=== PATIENT | female | born 1980 | race American Indian/Alaskan Native ===

== ENCOUNTER 2017-02-25 16:49 | Emergency (ER) | payer OTHER ==
[2017-02-25 18:06] VITALS: BP 139/85; PULSE 80; RESP 19; TEMP 97.9; O2SAT 99
--- NOTE | 2017-02-25 18:20 | ED PDOC ---
Lower Extremity Pain/Injury Time Seen by Provider: 02/25/17 18:06 Chief Complaint (Nursing): Lower Extremity Problem/Injury Chief Complaint (Provider): Lower Extremity Problem/Injury History Per: Patient History/Exam Limitations: no limitations Onset/Duration Of Symptoms: Days Current Symptoms Are (Timing): Still Present Severity: Mild Additional Complaint(s): Patient is a 36 year old female who presents to ED for right knee pain for 1 week. Patient reports pain is atraumatic, mildly relieved with Motrin. Denies fever, calf pain, calf swelling, numbness or tingling. Past Medical History Reviewed: Historical Data, Nursing Documentation, Vital Signs Vital Signs: Last Vital Signs Temp 97.9 F 02/25/17 18:04 Pulse 80 02/25/17 18:04 Resp 19 02/25/17 18:04 BP 139/85 02/25/17 18:04 Pulse Ox 99 02/25/17 18:04 - Medical History PMH: Asthma, Bronchitis, Hyperthyroidism ([place]), Hypothyroidism, Sexually Transmitted Disease (HPV) Denies: Chronic Kidney Disease - Surgical History Surgical History: Tonsillectomy - Family History Family History: States: Unknown Family Hx - Living Arrangements Living Arrangements: With Family - Immunization History Hx Tetanus Toxoid Vaccination: No Hx Influenza Vaccination: No Hx Pneumococcal Vaccination: No - Home Medications Home Medications: Ambulatory Orders Medication Instructions Recorded Amoxicillin/Potassium Clav 1 each PO BID #0 tablet 11/09/15 [Augmentin 875-125 Tablet] Docusate [Colace] 100 mg PO BID #0 cap 11/09/15 Sulfamethoxazole/Trimethoprim 1 tab PO BID #0 tab 11/09/15 [Bactrim DS 800 mg-160 mg] Calamine/Pramoxine [Caladryl] 180 ml TP DAILY #1 bottle 02/08/16 Cephalexin [cephalexin] 500 mg PO BID #14 cap 05/17/16 Fexofenadine/Pseudoephedrine 1 each PO BID #20 tab.er.12h 05/17/16 [Norma-D 12 Hour Tablet] Oxymetazoline 0.05% [Oxymetazoline 1 spray NS TID PRN #1 bottle 06/10/16 HCl 30 Ml] Naproxen [Naprosyn] 500 mg PO BID PRN #30 tab 02/25/17 - Allergies Allergies/Adverse Reactions: Allergies Allergy/AdvReac Type Severity Reaction Status Date / Time No Known Allergies Allergy Verified 11/06/15 14:31 Review of Systems Constitutional: Negative for: Fever Musculoskeletal: Positive for: Leg Pain Skin: Negative for: Rash, Bruising Neurological: Negative for: Weakness, Numbness Physical Exam - Reviewed Nursing Documentation Reviewed: Yes Vital Signs Reviewed: Yes - Physical Exam Appears: Positive for: Non-toxic, No Acute Distress Skin: Positive for: Normal Color Eye Exam: Positive for: Normal appearance Neck: Positive for: Normal Extremity: Positive for: Normal ROM, Tenderness (right knee: (+) minimal tenderness anteriorly, full ROM (-) swelling (-) erythema (-) warmth (+) crepitus), Capillary Refill (right foot: Less than 2 seconds ). Negative for: Calf Tenderness, Deformity Neurologic/Psych: Positive for: Alert, Oriented. Negative for: Motor/Sensory Deficits - ECG O2 Sat by Pulse Oximetry: 99 (RA) Pulse Ox Interpretation: Normal - Radiology X-Ray: Interpreted by Me (R knee x-ray) X-Ray Interpretation: No Acute Disease Medical Decision Making Medical Decision Making: Time: 1800 Initial Impression: R/O fracture vs arthritic pain Initial Plan: -- Knee Xray -- Motrin PO Scribe Attestation: Documented by Lynda Guan, acting as a scribe for Migel Woods PA-C. Provider Scribe Attestation: All medical record entries made by the Scribe were at my direction and personally dictated by me. I have reviewed the chart and agree that the record accurately reflects my personal performance of the history, physical exam, medical decision making, and the department course for this patient. I have also personally directed, reviewed, and agree with the discharge instructions and disposition. Disposition - Clinical Impression Clinical Impression: Knee pain - Patient ED Disposition Is Patient to be Admitted: No - Disposition Referrals: Jenni Leach MD [Staff Provider] - [facility] [Outside] Disposition: Routine/Home Disposition Time: 19:00 Condition: STABLE Prescriptions: Naproxen [Naprosyn] 500 mg PO BID PRN #30 tab PRN Reason: Pain Instructions: Knee Pain (ED) Forms: [facility] ED School/Work Excuse Print Language: ROMANSH
--- NOTE | 2017-02-26 11:43 | RAD ---
PROCEDURE: Right Knee Radiographs. HISTORY: pain COMPARISON: None. FINDINGS: BONES: Normal. No fracture. JOINTS: Normal. No osteoarthritis. JOINT EFFUSION: None. OTHER FINDINGS: None. IMPRESSION: Normal radiographs of the right knee.
== END 2017-02-25 19:39 | disposition home or self-care (01) ==
LOC: H.ER 16:49
DX: M25.561 Pain in right knee (principal); E05.90 Thyrotoxicosis, unspecified without thyrotoxic crisis or storm; J45.909 Unspecified asthma, uncomplicated